=== PATIENT | female | born 1990 | race Caucasian/White ===

== ENCOUNTER 2018-02-02 07:13 | Day surgery (SDC) | payer BC ==
[~2018-02-02 07:13] MED LIST: Enoxaparin 40 MG/0.4 ML Syringe SUBCUT ONE; Lactated Ringers 1,000 ML IV SCH
[2018-02-02] MEDS ORDERED: Propofol 200 MG/20 ML SDV ONE (07:37)
[2018-02-02] MEDS ORDERED: Ondansetron 4 MG/2 ML SDV ONE (07:37)
[2018-02-02] MEDS ORDERED: Lidocaine 2% 5 ML SDV ONE (07:37)
[2018-02-02] MEDS ORDERED: Rocuronium 10 MG/ML 10 ML Syringe ONE (07:37)
[2018-02-02] MEDS ORDERED: Midazolam 1 MG/ML 2 ML SDV ONE (07:38)
[2018-02-02] MEDS ORDERED: fentaNYL 250 MCG/5 ML SDV ONE (07:38)
--- NOTE | 2018-02-02 07:53 | PCM.PREANE ---
Preanesthetic Assessment - Anesthesia/Transfusion/Family Hx Anesthesia History: Prior Anesthesia Without Reaction Family History of Anesthesia Reaction: No Transfusion History: No Prior Transfusion(s) Intubation History: Unknown - Review of Systems General: No Symptoms Pulmonary: No Symptoms Cardiovascular: No Symptoms Gastrointestinal: No Symptoms Neurological: No Symptoms Other: Reports: None - Physical Assessment Height: 1.69 m Weight: 71.214 kg ASA Class: 2 Mental Status: Alert & Oriented x3 Airway Class: Mallampati = 2 Dentition: Reports: Normal Dentition (braces upper and lower) Thyro-Mental Finger Breadths: 2 Mouth Opening Finger Breadths: 2 ROM/Head Extension: Full Lungs: Clear to Auscultation, Normal Respiratory Effort Cardiovascular: Regular Rate, Regular Rhythm - Allergies Allergies/Adverse Reactions: Allergies Allergy/AdvReac Type Severity Reaction Status Date / Time mercury (elemental) Allergy Hives Verified 01/28/18 10:01 - Blood Blood Available: No - Anesthesia Plan Pre-Op Medication Ordered: None - Acknowledgements Anesthesia Type Planned: General Anesthesia Pt an Appropriate Candidate for the Planned Anesthesia: Yes Alternatives and Risks of Anesthesia Discussed w Pt/Guardian: Yes Pt/Guardian Understands and Agrees with Anesthesia Plan: Yes PreAnesthesia Questionnaire HEENT History: Reports: Other (See Below) Other HEENT History: wears glasses, has dental braces Cardiovascular History: Reports: Other (See Below) Other Cardiovascular History: palpatations during Gastrointestinal History: Reports: GERD Genitourinary History: Reports: None MANAGER MOTOR History: Reports: Endometriosis, , Other (See Below) Other OB/BYN History: 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 Musculoskeletal History: Reports: Fracture Other Musculoskeletal History: hx fx rt wrist Neurological History: Reports: Migraines Psychiatric History: Reports: Anxiety, Depression Hematologic History: Reports: Other (See Below) Other Hematologic History: bleeding disorder with , antiphoshpolid syndrome - Infectious Disease History Infectious Disease History: Reports: C-Difficile - Past Surgical History Head Surgeries/Procedures: Reports: None HEENT Surgical History: Reports: Oral Surgery GI Surgical History: Reports: EGD Female Surgical History: Reports: Other (See Below) Other Female Surgeries/Procedures: ESSURE - SUBSTANCE USE Smoking Status *Q: Former Smoker Tobacco Use Within Last Twelve Months: No Recreational Drug Use History: No - HOME MEDS Home Medications: Home Meds Propranolol [Inderal LA] 80 mg PO BEDTIME 11/27/15 [History] Escitalopram Oxalate [Lexapro] 10 mg PO DAILY 09/04/16 [History] Multivitamin [Multivitamins] 1 tab PO DAILY 01/28/18 [History] Omeprazole 40 mg PO DAILY 01/28/18 [History] Rizatriptan Benzoate [Rizatriptan] 5 mg PO ASDIRECTED PRN 01/28/18 [History] - CURRENT (IN HOUSE) MEDS Current Meds: Current Medications Lactated Ringer's (Ringers, Lactated) 1,000 mls @ 125 mls/hr IV ASDIRECTED BETTINA Discontinued Medications Enoxaparin Sodium (Lovenox) 40 mg SUBCUT ONETIME ONE Stop: 02/02/18 06:58 Fentanyl (Sublimaze) Confirm Administered Dose 250 mcg .ROUTE .STK-MED ONE Stop: 02/02/18 07:39 Lidocaine (Xylocaine-Mpf 2%) Confirm Administered Dose 5 ml .ROUTE .STK-MED ONE Stop: 02/02/18 07:38 Midazolam HCl (Versed 1 Mg/Ml) Confirm Administered Dose 2 mg .ROUTE .STK-MED ONE Stop: 02/02/18 07:39 Ondansetron HCl (Zofran) Confirm Administered Dose 4 mg .ROUTE .STK-MED ONE Stop: 02/02/18 07:38 Propofol (Diprivan 20 Ml) Confirm Administered Dose 200 mg .ROUTE .STK-MED ONE Stop: 02/02/18 07:38 Rocuronium [place] (Zemuron) Confirm Administered Dose 100 mg .ROUTE .STK-MED ONE Stop: 02/02/18 07:38
[2018-02-02] MEDS ORDERED: Bupivacaine 0.25% 10 ML SDV ONE (08:19)
[2018-02-02] MEDS ORDERED: ePHEDrine 50 MG/ML SDV ONE (09:00)
[2018-02-02] MEDS ORDERED: Neostigmine Methylsulfate 1 MG/ML 5 ML Syringe ONE (09:32)
[2018-02-02] MEDS ORDERED: Glycopyrrolate 0.2 MG/ML SDV ONE (09:32)
[2018-02-02] MEDS ORDERED: fentaNYL 100 MCG/2 ML SDV IVPUSH PRN (09:40)
--- NOTE | 2018-02-02 09:56 | PCM.OPNOTE ---
- General Post-Op/Procedure Note Date of Surgery/Procedure: 02/02/18 Operative Procedure(s): operative laparoscopy, bilateral salpingectomy Findings: Normal appearing uterus, tubes, ovaries, liver, gallbladder, appendix. No evidence of endometriosis, no pelvic adhesions. Essure coils removed with tubes. Pre Op Diagnosis: pelvic pain Post-Op Diagnosis: Same Anesthesia Technique: General ET Tube Primary Surgeon: Sharon Vargas Anesthesia Provider: Monica Cox Pathology: right tube with Essure coil; left tube with Essure coil Fluid Replacement, Intraop: 1,800 EBL in mLs: 10 Complications: None Known Condition: Good
[2018-02-02] MEDS ORDERED: Acetaminophen 1,000 MG in Premix Bag 1 BAG IV ONE (11:29)
[2018-02-02 12:51] VITALS: BP 107/66
--- NOTE | 2018-02-02 14:05 | OR ---
SURGEON: Sharon Vargas M.D. DATE OF PROCEDURE: 02/02/2018 PREOPERATIVE DIAGNOSIS: Pelvic pain. POSTOPERATIVE DIAGNOSIS: Pelvic pain. PROCEDURE: Operative laparoscopy with bilateral salpingectomy. ANESTHESIA: General endotracheal. FLUIDS: 1800 mL of crystalloid. ESTIMATED BLOOD LOSS: 10 mL. FINDINGS: Uterus is slightly retroverted, but very mobile. Upon laparoscopic evaluation, the uterus, tubes, ovaries, posterior cul-de-sac, appendix, liver, and gallbladder, all appeared normal. The bowel appears normal. There was no evidence of any adhesions within the abdomen. Bilateral Essure coils are identified at the proximal tubes in the appropriate position. BRIEF HISTORY: This is a 27-year-old female, she has a long history of pelvic pain. Several years ago, she had the Essure coils placed. In trying to evaluate her pain, we have treated her for endometriosis, which did provide some relief for her pain. This was empiric treatment with Lupron. She has had GI evaluation. She has not had a laparoscopic evaluation for endometriosis and she would prefer to have the Essure coils removed to take that out of the picture as far as a cause of pain. She understands risks of laparoscopy including risk of bleeding, infection, injury to visceral organs, risk of bleeding with potential risk of hysterectomy, risk of thromboembolic event. Due to her history related to possible antiphospholipid antibody syndrome, she did receive Lovenox preoperatively and she understands the risk of anesthesia. Understanding all these risks, she does desire to proceed. DESCRIPTION OF PROCEDURE: With the patient in the dorsal lithotomy position, under adequate general endotracheal anesthesia, the abdomen was prepped with chlorhexidine. The perineum and vagina were prepped with Betadine. SCDs were in place. Bladder was drained via straight catheter and she had received Lovenox 40 mg subcu approximately 30 minutes prior to the procedure. After an appropriate time-out was held and the patient was draped, a bimanual examination revealed a slightly retroverted uterus, mobile, incised approximately 8 cm. The speculum was placed in the vagina. The cervix was grasped with an Allis clamp and the ZUMI uterine manipulator was placed to the uterine fundus. The balloon was filled with 3 mL of air. The speculum was removed from the vagina, bridge operator slip's gloves were changed. Attention was then turned abdominally, where 2 mL of 0.25% Marcaine were injected inferior to the umbilicus. A 5 mm incision was made with a scalpel. The anterior abdominal wall was elevated. Veress needle was inserted. Opening pressure was 2 mmHg. CO2 was insufflated to develop an adequate pneumoperitoneum of 13 mmHg. A 5 mm port was then placed inferior to the umbilicus. The laparoscope was placed into the abdominal cavity. There was no evidence of any trauma from the port placement. The uterus was elevated. The patient was placed in Trendelenburg position, and the pelvis and abdomen were carefully inspected with findings as noted above. This was also documented by digital images, which were printed. This being complete, the left tube was grasped at the fimbria. The ligament between the fimbria and the tube and the ovary were cauterized and were ligated using the Harmonic Scalpel, setting of 3. Proceeding proximally along the mesosalpinx until approximately 1 cm from the cornua. The tube was then transected removing the very distal portion of the Essure coil. The proximal portion of the Essure coil could then be grasped with Guera clamp and removed easily. There was no bleeding. This was repeated on the opposite side also without difficulty. The abdomen was desufflated to CO2 level of 5 mmHg, there was no bleeding. Therefore, the abdomen was desufflated completely. The port sites were removed. The skin was closed with subcuticular suture of 4-0 Monocryl. The ZUMI uterine manipulator was removed from the vagina. Final sponge, needle, and instrument counts were reported as correct. There were no known complications. Specimen was left tube with Essure implant and separately right tube with Essure implant. JULIO CESAR TAVERA /[id number]
== END 2018-02-02 12:06 | disposition home or self-care (01) ==
LOC: MW.SDS 07:13
PROVIDERS: ATTEND Obstetrics & Gynecology
DX: R10.2 Pelvic and perineal pain (principal); Z97.5 Presence of (intrauterine) contraceptive device; F41.9 Anxiety disorder, unspecified; F32.9 Major depressive disorder, single episode, unspecified; Z87.891 Personal history of nicotine dependence; Z79.899 Other long term (current) drug therapy; Z91.048 Other nonmedicinal substance allergy status
CPT/HCPCS: 58661; 76098; J1650; J2250; J2405; J3010; J7120; 00840; 88305; J2704

== ENCOUNTER 2021-01-15 11:16 | Emergency (ER) | payer OTHER ==
[2021-01-15] MEDS ORDERED: Morphine 4 MG/ML Syringe IVPUSH ONE (11:59)
[2021-01-15] MEDS ORDERED: Lactated Ringers 1,000 ML IV SCH (12:00)
[2021-01-15 12:50] LABS: BLOOD UREA NITROGEN,BUN 21 mg/dL (7.0-18.0); CHLORIDE,CL 102 mmol/L (98-107); GLUCOSE RANDOM 91 mg/dL (74-106); SODIUM,NA 139 mmol/L (136-145)
--- NOTE | 2021-01-15 13:01 | US ---
Indication: Right-sided pelvic pain. Non obstetric ultrasound. Technique: Sonography of the pelvis was performed. The study is performed transvaginally only includes grayscale and color Doppler imaging. Comparison: None Findings: The uterus is normal in size and configuration. The uterus measures 7.4 by 3.4 x 4.9 centimeters. The endometrium measures 5 millimeters which is normal. An IUD appears to be normally located. The right ovary is unremarkable. The right ovary measures 1.7 x 2.3 by 2.4 centimeters. The left ovary contains a complex cyst, probably hemorrhagic cyst measuring 1.5 centimeters. The left ovary measures 1.8 x 2.3 by 3.4 centimeters. No fluid above that generally seen physiologically within the pelvis. Doppler of both ovaries is unremarkable. There is no evidence of torsion Impression: 1. Normal appearing uterus. IUD normally located. 2. Normal appearing right ovary. 3. Small complex cyst in the left ovary measuring 1.5 centimeters probably hemorrhagic cyst. 4. No evidence of torsion. No specific visible in etiology for right-sided pain. Dictated by Neel Castaneda MD @ 01/15/2021 1:00:[address] Neel Castaneda @ Jan 15 2021 1:00PM
--- NOTE | 2021-01-15 15:40 | CT ---
INDICATION: Right lower quadrant pain. COMPARISON: August 19, 2016 TECHNIQUE: CT examination of the abdomen and pelvis was performed following the uneventful intravenous administration of 75 cc of Isovue 370. Thin section axial images were obtained from the lung bases through the pubic symphysis. Oral contrast was not administered. Please note that all CT scans at this facility use dose modulation, iterative reconstruction, and/or weight-based dosing when appropriate to reduce radiation dose to as low as reasonably achievable. FINDINGS: LUNG BASES: The lung bases as visualized appear normal.The heart size is normal at the lung bases. LIVER/BILIARY SYSTEM:The liver is normal in size and configuration. There is no focal mass and there is no intra- or extra hepatic biliary ductal dilatation.The gall bladder appears normal. ADRENALS: Normal KIDNEYS, URETERS and BLADDER:The kidneys appear normal. No visible mass, calculus or hydronephrosis. The ureters and bladder as visualized appear normal. SPLEEN:Normal appearance. PANCREAS: Appears normal. RETROPERITONEUM and MESENTERY: There is no mass, adenopathy or aortic aneurysm. Prominent venous vasculature associated with the ovarian veins. This was present previously and can sometimes be associated with pelvic congestion syndrome. Correlate clinically. GASTROINTESTINAL SYSTEM: The appendix appears normal. There is no evidence of diverticulitis or obstruction. There is mild thickening of the transverse colon PELVIS: No mass or adenopathy..Prominent ovarian veins as mentioned above. OSSEOUS STRUCTURES and ABDOMINAL WALL: There is an age-appropriate appearance of the osseous structures.This is best seen on coronal image 25, 26 and 27. OTHER: No free fluid or free air. IMPRESSION: 1. There is no evidence of appendicitis or other specific abnormality in the right lower quadrant. 2. Mild thickening of the transverse colon which may be related to mild colitis. 3. Prominent retroperitoneal venous structures associated with the ovarian veins. This was present previously and is sometimes associated with pelvic congestion syndrome. Please note that all CT scans at this facility use dose modulation, iterative reconstruction, and/or weight-based dosing when appropriate to reduce radiation dose to as low as reasonably achievable. Dictated by Neel Castaneda MD @ 01/15/2021 3:39:[address] Neel Castaneda @ Jan 15 2021 3:39PM
--- NOTE | 2021-01-15 17:13 | EDM.PDOC ---
ED HPI GENERAL MEDICAL PROBLEM - General Chief Complaint: Abdominal Pain Stated Complaint: POSS APPENDICITIS Time Seen by Provider: 01/15/21 11:48 - History of Present Illness INITIAL COMMENTS - FREE TEXT/NARRATIVE: CHIEF COMPLAINT(S): Right lower quadrant abdominal pain HISTORY OF PRESENT ILLNESS: This is a 30-year-old woman with a past medical history of ovarian cyst, who comes to the emergency department with a chief comp laint of right lower quadrant abdominal pain. She states that suddenly today she started to experience right lower quadrant abdominal pain which she describes as 7-8 out of 10 and now 2-3 out of 10. She denies any radiation and describes it as intermittent. She describes it as crampy associated with nausea. She denies any vaginal bleeding and states that she does have some vaginal discharge which is normal. She denies any fever, chills, chest pain, shortness of breath. She states that she called her press setter Dr. Vargas who recommended that she come to the emergency department for evaluation for appendicitis. She denies any dysuria, hematuria, vaginal bleeding. She states that she has not yet taken any pain medication. She denies any aggravating factors or relieving factors. REVIEW OF SYSTEMS: Constitutional: Denies fever, chills. Eyes: Denies eye pain Ears, Nose, Mouth, & Throat: Denies earache Cardiovascular: Denies chest pain Respiratory: Denies shortness of breath Gastrointestinal: Positive for right lower quadrant abdominal pain and nausea. Denies vomiting, diarrhea, hematochezia, hematemesis, bilious emesis genitourinary: Denies hematuria, dysuria, vaginal bleeding Skin:Denies a rash MSK: Denies joint pain Neurological: Denies blurred vision Psychiatric: Denies depression PAST MEDICAL HISTORY: As per history of present illness and as reviewed below otherwise noncontributory. SURGICAL HISTORY: As per history of present illness and as reviewed below otherwise noncontributory. SOCIAL HISTORY: As per history of present illness and as reviewed below o therwise noncontributory. FAMILY HISTORY: As per history of present illness and as reviewed below otherwise noncontributory. EXAMINATION OF ORGAN SYSTEMS/BODY AREAS: Constitutional: Blood pressure is 115/89, heart rate 78, respirate 17 with an oxygen saturation 98% on room air. Temperature 37.0 General: Overall well-appearing woman who is in no acute distress Psychiatric: Appropriate mood and affect. Eyes: No scleral icterus or conjunctival erythema ENMT: Moist mucous membranes. No pharyngeal erythema Cardiovascular: Regular, rate, and rhythm. No gallops, murmurs, or rubs. Bilateral upper extremity pulses symmetric and intact. No peripheral edema. No JVD. Respiratory: Lungs clear to auscultation bilaterally. No wheezes, rales, or rhonchi. Gastrointestinal: Soft, tenderness to palpation in the right lower quadrant without rebound. Nondistended. Negative Guzman's. Normoactive bowel sounds Genitourinary: No suprapubic tenderness bimanual examination was performed with RN printer slotter helper in presence. There was cervical motion tenderness and no adnexal tenderness. There is white discharge. No CVA tenderness Musculoskeletal: Normal range of motion. Skin: No lesions or abrasions. Neurological: Alert, GCS 15 MEDICAL DECISION MAKING AND COURSE IN THE ED WITH INTERPRETATION/REVIEW OF DIAGNOSTIC STUDIES: This is a 30-year-old and with a past medical history of ovarian cyst and bilateral salpingectomy who comes to the emergency department with acute right lower quadrant abdominal pain without any adnexal tenderness on examination with some cervical motion tenderness and right lower quadrant abdominal pain. At this time will obtain an hCG. Differential does include ovarian torsion, appendicitis, pelvic inflammatory disease. Will obtain CBC, CMP, hCG, urinalysis, trichomonas, gonorrhea and Covid. Will obtain a transvaginal ultrasound and abdomen pelvis CT. We will provide the patient with morphine for pain relief and 1 L of lactated Ringer's bolus. Laboratory: CBC is unremarkable. CMP reveals elevated BUN at 21 otherwise unremarkable. hCG is negative. BV, Luna, trichomonas negative. Covid is negative. Urinalysis was a clean catch and was negative for leukocyte esterase, negative for nitrites, and negative for blood. Interpretation: Negative. The radiological images were viewed by myself along with reading the report from the radiologist. Transvaginal ultrasound reveals a normal-appearing uterus with IUD normally located. Normal-appearing right ovary with good flow. There is a complex left ovarian cysts measuring approximately 1.5 cm. Physiologic free fluid in the pelvis. After ultrasound I did reevaluate the patient. Her pain had improved. CT was pending at this time. There was a significant delay secondary to critical patie nt. The radiological images were viewed by myself along with reading the report from the radiologist. CT abdomen pelvis with contrast does not reveal any evidence of acute appendicitis. There was some mild thickening of the transverse colon which may be related to mild colitis. There is prominent retroperitoneal venous structures associated with ovarian veins. This was present previously and is sometimes associated with pelvic congestion syndrome. I did discuss the results with the patient at this time. I did discuss her like to speak to gynecology for further recommendations. I spoke with Dr. Saini was the patient's press setter partner. She did not recommend any further imaging or treatment at this time. Although this could be secondary to the pain that she is experiencing there is no treatment for it currently. I did discuss the results with the patient. I discussed that she would be stable for discharge. She was given strict return precautions. The patient was amenable discharge at this time and had no further questions DISPOSITION: The patient was discharged home in stable condition. The patient will follow up with her press setter CONDITION: Fair PROCEDURES: None FINAL IMPRESSION(S)/DIAGNOSES: 1. Acute right lower quadrant abdominal pain, improved Jacobo Pritchett M.D. Right Abdominal Pain Score (Numeric/FACES): 2 - Related Data Allergies Allergy/AdvReac Type Severity Reaction Status Date / Time mercury (elemental) Allergy Hives Verified 01/15/21 11:57 Home Meds: Home Meds Propranolol [Inderal LA] 80 mg PO BEDTIME 11/27/15 [History] Omeprazole 40 mg PO DAILY 01/28/18 [History] FLUoxetine [PROzac] 10 mg PO DAILY 01/15/21 [History] Gabapentin [Neurontin] 300 mg PO TID 01/15/21 [History] Past Medical History HEENT History: Reports: Other (See Below) Other HEENT History: wears glasses, has dental braces Cardiovascular History: Reports: Other (See Below) Other Cardiovascular History: palpatations during Gastrointestinal History: Reports: GERD Genitourinary History: Reports: None DIRECTOR OF OCCUPATIONAL THERAPY History: Reports: Endometriosis, , Other (See Below) Other DIRECTOR OF OCCUPATIONAL THERAPY History: 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 Musculoskeletal History: Reports: Fracture Other Musculoskeletal History: hx fx rt wrist Neurological History: Reports: Migraines Psychiatric History: Reports: Anxiety, Depression Hematologic History: Reports: Other (See Below) Other Hematologic History: bleeding disorder with , antiphoshpolid syn drome - Infectious Disease History Infectious Disease History: Reports: C-Difficile - Past Surgical History Head Surgeries/Procedures: Reports: None HEENT Surgical History: Reports: Oral Surgery GI Surgical History: Reports: EGD Female Surgical History: Reports: Other (See Below) Other Female Surgeries/Procedures: ESSURE Social & Family History - Family History Family Medical History: No Pertinent Family History - Tobacco Use Tobacco Use Status *Q: Never Tobacco User - Caffeine Use Caffeine Use: Reports: None - Living Situation & Occupation Living situation: Reports: Occupation: Employed ED ROS GENERAL - Review of Systems Review Of Systems: See Below ED EXAM, GENERAL - Physical Exam Exam: See Below Course - Vital Signs Last Recorded V/S: Last Vital Signs Temp 37.0 C 01/15/21 11:59 Pulse 58 L 01/15/21 17:28 Resp 16 01/15/21 17:28 BP 107/68 01/15/21 17:28 Pulse Ox 95 01/15/21 17:28 - Orders/Labs/Meds Labs: Laboratory Tests 01/15/21 01/15/21 01/15/21 Range/Units 11:55 11:55 11:55 WBC 10.83 (4.0-11.0) K/uL RBC 4.93 (4.30-5.90) M/uL Hgb 15.4 (12.0-16.0) g/dL Hct 44.5 (36.0-46.0) % MCV 90.3 (80.0-98.0) fL MCH 31.2 (27.0-32.0) pg MCHC 34.6 (31.0-37.0) g/dL RDW Std Deviation 40.3 (28.0-62.0) fl RDW Coeff of Chun 12 (11.0-15.0) % Plt Count 283 (150-400) K/uL MPV 11.40 (7.40-12.00) fL Neut % (Auto) 80.7 H (48.0-80.0) % Lymph % (Auto) 12.1 L (16.0-40.0) % Long % (Auto) 6.6 (0.0-15.0) % Eos % (Auto) 0.5 (0.0-7.0) % Baso % (Auto) 0.1 (0.0-1.5) % Neut # (Auto) 8.7 H (1.4-5.7) K/uL Lymph # (Auto) 1.3 (0.6-2.4) K/uL Long # (Auto) 0.7 (0.0-0.8) K/uL Eos # (Auto) 0.1 (0.0-0.7) K/uL Baso # (Auto) 0.0 (0.0-0.1) K/uL Nucleated RBC % 0.0 /100WBC Nucleated RBCs # 0 K/uL Sodium 139 (136-145) mmol/L Potassium 4.0 (3.5-5.1) mmol/L Chloride 102 (98-107) mmol/L Carbon Dioxide 27.0 (21.0-32.0) mmol/L BUN 21 H (7.0-18.0) mg/dL Creatinine 1.0 (0.6-1.0) mg/dL Est Cr Clr Drug Dosing 76.31 mL/min Estimated GFR (MDRD) > 60.0 ml/min Glucose 91 (74-106) mg/dL Calcium 9.4 (8.5-10.1) mg/dL Total Bilirubin 0.5 (0.2-1.0) mg/dL AST 16 (15-37) IU/L ALT 19 (14-63) IU/L Alkaline Phosphatase 90 (46-116) U/L Total Protein 8.4 H (6.4-8.2) g/dL Albumin 4.7 (3.4-5.0) g/dL Globulin 3.7 (2.6-4.0) g/dL Albumin/Globulin Ratio 1.3 (0.9-1.6) HCG, Qual NEGATIVE (NEG) Urine Color Urine Appearance Urine pH (5.0-8.0) Ur Specific [place] (1.001-1.035) Urine Protein (NEGATIVE) mg/dL Urine Glucose (UA) (NEGATIVE) mg/dL Urine Ketones (NEGATIVE) mg/dL Urine Occult Blood (NEGATIVE) Urine Nitrite (NEGATIVE) Urine Bilirubin (NEGATIVE) Urine Urobilinogen (<2.0) EU/dL Ur Leukocyte Esterase (NEGATIVE) Urine HCG, Qual (NEGATIVE) Luna species DNA (NEGATIVE) Gardnerella DNA Probe (NEGATIVE) SARS-CoV-2 RNA (LEOLA) (NEGATIVE) Trichomonas DNA Probe (NEGATIVE) 01/15/21 01/15/21 01/15/21 Range/Units 12:35 14:03 14:03 WBC (4.0-11.0) K/uL RBC (4.30-5.90) M/uL Hgb (12.0-16.0) g/dL Hct (36.0-46.0) % MCV (80.0-98.0) fL MCH (27.0-32.0) pg MCHC (31.0-37.0) g/dL RDW Std Deviation (28.0-62.0) fl RDW Coeff of Chun (11.0-15.0) % Plt Count (150-400) K/uL MPV (7.40-12.00) fL Neut % (Auto) (48.0-80.0) % Lymph % (Auto) (16.0-40.0) % Long % (Auto) (0.0-15.0) % Eos % (Auto) (0.0-7.0) % Baso % (Auto) (0.0-1.5) % Neut # (Auto) (1.4-5.7) K/uL Lymph # (Auto) (0.6-2.4) K/uL Long # (Auto) (0.0-0.8) K/uL Eos # (Auto) (0.0-0.7) K/uL Baso # (Auto) (0.0-0.1) K/uL Nucleated RBC % /100WBC Nucleated RBCs # K/uL Sodium (136-145) mmol/L Potassium (3.5-5.1) mmol/L Chloride (98-107) mmol/L Carbon Dioxide (21.0-32.0) mmol/L BUN (7.0-18.0) mg/dL Creatinine (0.6-1.0) mg/dL Est Cr Clr Drug Dosing mL/min Estimated GFR (MDRD) ml/min Glucose (74-106) mg/dL Calcium (8.5-10.1) mg/dL Total Bilirubin (0.2-1.0) mg/dL AST (15-37) IU/L ALT (14-63) IU/L Alkaline Phosphatase (46-116) U/L Total Protein (6.4-8.2) g/dL Albumin (3.4-5.0) g/dL Globulin (2.6-4.0) g/dL Albumin/Globulin Ratio (0.9-1.6) HCG, Qual (NEG) Urine Color YELLOW Urine Appearance CLEAR Urine pH 6.0 (5.0-8.0) Ur Specific [place] <= 1.005 (1.001-1.035) Urine Protein NEGATIVE (NEGATIVE) mg/dL Urine Glucose (UA) NEGATIVE (NEGATIVE) mg/dL Urine Ketones NEGATIVE (NEGATIVE) mg/dL Urine Occult Blood NEGATIVE (NEGATIVE) Urine Nitrite NEGATIVE (NEGATIVE) Urine Bilirubin NEGATIVE (NEGATIVE) Urine Urobilinogen 0.2 (<2.0) EU/dL Ur Leukocyte Esterase NEGATIVE (NEGATIVE) Urine HCG, Qual NEGATIVE (NEGATIVE) Luna species DNA (NEGATIVE) Gardnerella DNA Probe (NEGATIVE) SARS-CoV-2 RNA (LEOLA) NEGATIVE (NEGATIVE) Trichomonas DNA Probe (NEGATIVE) 01/15/21 Range/Units 14:03 WBC (4.0-11.0) K/uL RBC (4.30-5.90) M/uL Hgb (12.0-16.0) g/dL Hct (36.0-46.0) % MCV (80.0-98.0) fL MCH (27.0-32.0) pg MCHC (31.0-37.0) g/dL RDW Std Deviation (28.0-62.0) fl RDW Coeff of Chun (11.0-15.0) % Plt Count (150-400) K/uL MPV (7.40-12.00) fL Neut % (Auto) (48.0-80.0) % Lymph % (Auto) (16.0-40.0) % Long % (Auto) (0.0-15.0) % Eos % (Auto) (0.0-7.0) % Baso % (Auto) (0.0-1.5) % Neut # (Auto) (1.4-5.7) K/uL Lymph # (Auto) (0.6-2.4) K/uL Long # (Auto) (0.0-0.8) K/uL Eos # (Auto) (0.0-0.7) K/uL Baso # (Auto) (0.0-0.1) K/uL Nucleated RBC % /100WBC Nucleated RBCs # K/uL Sodium (136-145) mmol/L Potassium (3.5-5.1) mmol/L Chloride (98-107) mmol/L Carbon Dioxide (21.0-32.0) mmol/L BUN (7.0-18.0) mg/dL Creatinine (0.6-1.0) mg/dL Est Cr Clr Drug Dosing mL/min Estimated GFR (MDRD) ml/min Glucose (74-106) mg/dL Calcium (8.5-10.1) mg/dL Total Bilirubin (0.2-1.0) mg/dL AST (15-37) IU/L ALT (14-63) IU/L Alkaline Phosphatase (46-116) U/L Total Protein (6.4-8.2) g/dL Albumin (3.4-5.0) g/dL Globulin (2.6-4.0) g/dL Albumin/Globulin Ratio (0.9-1.6) HCG, Qual (NEG) Urine Color Urine Appearance Urine pH (5.0-8.0) Ur Specific [place] (1.001-1.035) Urine Protein (NEGATIVE) mg/dL Urine Glucose (UA) (NEGATIVE) mg/dL Urine Ketones (NEGATIVE) mg/dL Urine Occult Blood (NEGATIVE) Urine Nitrite (NEGATIVE) Urine Bilirubin (NEGATIVE) Urine Urobilinogen (<2.0) EU/dL Ur Leukocyte Esterase (NEGATIVE) Urine HCG, Qual (NEGATIVE) Luna species DNA NEGATIVE (NEGATIVE) Gardnerella DNA Probe NEGATIVE (NEGATIVE) SARS-CoV-2 RNA (LEOLA) (NEGATIVE) Trichomonas DNA Probe NEGATIVE (NEGATIVE) Meds: Medications Discontinued Medications Generic Name Dose Route Start Last Admin Trade Name Freq PRN Reason Stop Dose Admin Lactated Ringer's 1,000 mls @ 999 mls/hr 01/15/21 12:00 01/15/21 12:29 Ringers, Lactated IV 999 mls/hr ASDIRECTED BETTINA Administration Iopamidol 75 ml 01/15/21 18:15 01/15/21 18:16 Iopamidol 755 Mg/Ml 500 Ml Multipack Bottle IVPUSH 01/15/21 18:16 75 ml ONETIME STA Administration Morphine Sulfate 4 mg 01/15/21 11:59 01/15/21 12:29 Morphine 4 Mg/Ml Syringe IVPUSH 01/15/21 12:00 4 mg ONETIME ONE Administration Departure - Departure Time of Disposition: 17:12 Disposition: Home, Self-Care 01 Condition: Fair Clinical Impression: Abdominal pain, Colitis - Discharge Information *PRESCRIPTION DRUG MONITORING PROGRAM REVIEWED*: No *COPY OF PRESCRIPTION DRUG MONITORING REPORT IN PATIENT ROBERTH: No Instructions: Abdominal Pain, Adult, [id number], Colitis Referrals: PCP,None [Primary Care Provider] - Forms: ED Department Discharge Additional Instructions: You were evaluated today on an emergent basis. At this time your work-up was negative. There was some evidence of some venous enlargement in your pelvis. We did speak with your gynecology team and they stated that this is sometimes normal and nothing to worry about. At this time there was no evidence of appendicitis and there was some evidence of some mild colitis which is inflammation of the bowel. I do recommend that you use a bland diet over the next couple of days and maintain hydration. If you have any worsening abdominal pain or fever please return to the emergency department. Otherwise please follow-up with your press setter and primary care physician. [facility] [address] [place] [address] [facility] [address] [place] [id number] [facility] [address] [place] [id number] [facility] [address] [place] [address] The patient is informed of any results of their evaluation and diagnostic workup and all questions are answered. They are given discharge instructions and return precautions. The patient is stable for discharge. The patient states they understand and agree with the plan and that they will return if their symptoms get worse or if they have any new concerns. The following information is given to patients seen in the emergency department who are being discharged to home. This information is to outline your options for follow-up care. We provide all patients seen in our emergency department with a follow-up referral. The need for follow-up, as well as the timing and circumstances, are variable depending upon the specifics of your emergency department visit. If you don't have a primary care physician on staff, we will provide you with a referral. We always advise you to contact your personal physician following an emergency department visit to inform them of the circumstance of the visit and for follow-up with them and/or the need for any referrals to a consulting specialist. The emergency department will also refer you to a specialist when appropriate. This referral assures that you have the opportunity for follow-up care with a specialist. All of these measure are taken in an effort to provide you with optimal care, which includes your follow-up. Under all circumstances we always encourage you to contact your private physician who remains a resource for coordinating your care. When calling for follow-up care, please make the office aware that this follow-up is from your recent emergency room visit. If for any reason you are refused follow-up, please contact the [facility] Emergency Department at and asked to speak to the emergency department charge nurse. Sepsis Event Note (ED) - Evaluation Sepsis Screening Result: No Definite Risk
[2021-01-15] MEDS ORDERED: Iopamidol 755 MG/ML 500 ML Multipack Bottle IVPUSH STA (18:15)
[2021-01-15 20:28] VITALS: BP 107/68; PULSE 58
[2021-01-17 13:02] LABS: C.TRACHOMATIS BY TMA Negative (Negative); N.GONORRHOEAE BY TMA Negative (Negative)
== END 2021-01-15 17:28 | disposition home or self-care (01) ==
LOC: MW.ED 11:16
DX: K52.9 Noninfective gastroenteritis and colitis, unspecified (principal); K21.9 Gastro-esophageal reflux disease without esophagitis; Z79.899 Other long term (current) drug therapy; Z20.822 Contact with and (suspected) exposure to COVID-19
CPT/HCPCS: 36415; 74177; 76830; 80053; 81003; 81025; 84703; 85025; 87480; 87491; 87510; 87591; 87635; 87660; 96374; 99284; J2270; J7120; Q9967; U0002

== ENCOUNTER 2023-04-10 15:41 | Emergency (ER) | payer OTHER ==
[2023-04-10] MEDS ORDERED: Morphine 4 MG/ML Syringe IVPUSH ONE (15:50)
[2023-04-10] MEDS ORDERED: Ondansetron 4 MG/2 ML SDV IVPUSH ONE (15:50)
[2023-04-10] MEDS ORDERED: Lactated Ringers 1,000 ML IV SCH (16:00)
[2023-04-10 16:06] LABS: BASOPHILS PERCENT AUTO 0.2 % (0.0-1.5); EOSINOPHILS ABSOLUTE AUTO 0.1 K/uL (0.0-0.7); HEMATOCRIT 41.2 % (36.0-46.0); HEMOGLOBIN 14.4 g/dL (12.0-16.0); LYMPHOCYTES ABSOLUTE AUTO 1.7 K/uL (0.6-2.4); LYMPHOCYTES PERCENT AUTO 18.9 % (16.0-40.0); MEAN CORPUSCULAR HEMOGLOBIN 30.8 pg (27.0-32.0); MEAN CORPUSCULAR VOLUME 88.2 fL (80.0-98.0); MONOCYTES ABSOLUTE AUTO 0.7 K/uL (0.0-0.8); MONOCYTES PERCENT AUTO 7.9 % (0.0-15.0); NEUTROPHILS ABSOLUTE AUTO 6.6 K/uL (1.4-5.7); NRBC ABSOLUTE 0 K/uL; PLATELET COUNT,PLT 258 K/uL (150-400); RED BLOOD CELL COUNT 4.67 M/uL (4.30-5.90); WHITE BLOOD CELL COUNT,WBC 9.13 K/uL (4.0-11.0)
[2023-04-10 16:32] LABS: A/G RATIO 1.2 (0.9-1.6); ALBUMIN 4.2 g/dL (3.4-5.0); BILIRUBIN TOTAL 0.4 mg/dL (0.2-1.0); CALCIUM 9.1 mg/dL (8.5-10.1); CARBON DIOXIDE,CO2 24.6 mmol/L (21.0-32.0); CREATININE 1.2 mg/dL (0.6-1.0); EST CRCL DRUG DOSING (CG) 64.24 mL/min; POTASSIUM,K 3.4 mmol/L (3.5-5.1); PROTEIN TOTAL,TP 7.6 g/dL (6.4-8.2)
[2023-04-10] MEDS ORDERED: Iopamidol 755 Mg/ML 100 ML Bottle IVPUSH ONE (16:41)
[2023-04-10] MEDS ORDERED: Acetaminophen 325 MG Tab PO ONE (17:34)
[2023-04-10] MEDS ORDERED: Bacitracin Oint 28.35 GM Tube ONE (17:56)
[2023-04-10 18:07] VITALS: BP 117/71; PULSE 68
[2023-04-10] MEDS ORDERED: Bacitracin Oint 28.35 GM Tube TOP ONE (18:15)
[2023-04-10] MEDS ORDERED: Bacitracin Oint 28.35 GM Tube TOP SCH (22:00)
== END 2023-04-10 18:30 | disposition home or self-care (01) ==
LOC: MW.ED 15:41
DX: S50.812A Abrasion of left forearm, initial encounter (principal); S40.812A Abrasion of left upper arm, initial encounter; S00.81XA Abrasion of other part of head, initial encounter; S30.811A Abrasion of abdominal wall, initial encounter; S20.312A Abrasion of left front wall of thorax, initial encounter; K21.9 Gastro-esophageal reflux disease without esophagitis; Z91.09 Other allergy status, other than to drugs and biological substances; Z79.899 Other long term (current) drug therapy; W20.8XXA Other cause of strike by thrown, projected or falling object, initial encounter
CPT/HCPCS: 36415; 70450; 71045; 71260; 72125; 72128; 72131; 74177; 80053; 83690; 84703; 85025; 96374; 96375; 99284; A9270; J2270; J2405; J7120; Q9967